=== PATIENT | male | born 1980 | race Caucasian/White ===

== ENCOUNTER 2019-03-18 18:45 | Emergency (ER) | payer SELFPAY ==
[~2019-03-18] VITALS: Ht 185.4 cm; Wt 99.8 kg
--- NOTE | 2019-03-18 19:05 | NUR ---
SEIZURE PRECAUTIONS IMPLEMENTED
--- NOTE | 2019-03-18 19:12 | NUR ---
PT BIBRA C/O WITNESSED SEIZURE. PER PT "I CANT CONTROL MY BODY AND I WAS SHAKING. -KO" PT AAOX4, VSS, BREATHING EVEN AND UNLABORED ON RA W/ NAD NOTED. PT CONNECTED TO THE MONITOR AND POX.
[2019-03-18] MEDS ORDERED: LEVETIRACETAM (500MG) 1,000 MG in IV NS 0.9% 100 ML IV ONE (19:30)
[2019-03-18] MEDS ORDERED: IV NS 0.9% 1,000 ML BAG IV ONE (19:30)
--- NOTE | 2019-03-18 19:30 | NUR ---
INSTITUTIONAL COOK AT BEDSIDE
[2019-03-18 19:54] LABS: BASOPHILS % (AUTO) 0.3 % (0.0-2.0); EOSINOPHILS % (AUTO) 2.5 % (0.0-6.0); HEMATOCRIT 44 % (39-51); HEMOGLOBIN 15.1 g/dL (13.5-17.5); LYMPHOCYTES # (AUTO) 1.1 /CMM (0.8-4.8); LYMPHOCYTES % (AUTO) 18.7 % (20.0-44.0); MEAN CORPUSCULAR HGB CONC 34 g/dl (31.0-36.0); MEAN CORPUSCULAR VOLUME 92 fL (80-96); MONOCYTES # (AUTO) 0.5 /CMM (0.1-1.30); MONOCYTES % (AUTO) 9.3 % (2.0-12.0); NEUTROPHILS % (AUTO) 69.2 % (43.0-81.0); PLATELET COUNT (AUTO) 223 /CMM (150-450); RED BLOOD CELL COUNT(AUTO) 4.76 MIL/uL (4.5-6.0); WHITE BLOOD COUNT (AUTO) 5.8 K/uL (4.3-11.0)
--- NOTE | 2019-03-18 19:57 | NUR ---
PT TAKEN TO CT
[2019-03-18 20:01] LABS: CALCIUM, SERUM 9.5 mg/dL (8.5-10.1); CARBON DIOXIDE 29 mmol/L (21-32); CHLORIDE 104 mmol/L (98-107); CREATININE 1.4 mg/dL (0.6-1.3); GLUCOSE 127 mg/dL (74-106); POTASSIUM 4.7 mmol/L (3.5-5.1); SODIUM SERUM 140 mmol/L (136-145); UREA NITROGEN, BLOOD 18 mg/dL (7-18)
[2019-03-18 20:07] LABS: ALANINE AMINOTRANSFERASE 42 U/L (12-78); ALBUMIN 3.8 g/dL (3.4-5.0); ALCOHOL, BLOOD < 3 mg/dL (0-0); ALKALINE PHOSPHATASE 82 U/L (46-116); ASPARTATE AMINOTRANSFERASE 22 U/L (15-37); BILIRUBIN,DIRECT 0.1 mg/dL (0.0-0.2); BILIRUBIN,TOTAL 0.4 mg/dL (0.2-1.0); TOTAL PROTEIN, SERUM 7.1 g/dL (6.4-8.2)
--- NOTE | 2019-03-18 20:10 | NUR ---
PT BACK FROM CT
[2019-03-18] MEDS ORDERED: GABA300C PO (20:53)
[2019-03-18] MEDS ORDERED: [UNRECOGNIZED DRUG - CODE] IJ (20:56)
--- NOTE | 2019-03-18 21:33 | NUR ---
Patient discharged to home in stable condition. Written and verbal after care instructions given. Patient verbalizes understanding of instruction.IV removed. Catheter intact and site benign. Pressure and 4x4 applied to site. No bleeding noted.
[2019-03-18 21:34] VITALS: BP 114/78
== END 2019-03-18 21:34 | disposition home or self-care (01) ==
LOC: ER 18:48
DX: R56.9 Unspecified convulsions (principal); Z88.2 Allergy status to sulfonamides; Z88.6 Allergy status to analgesic agent; Z88.5 Allergy status to narcotic agent; Z60.2 Problems related to living alone; Z79.899 Other long term (current) drug therapy
CPT/HCPCS: 36415; 70450; 71045; 80048; 80076; 80307; 82962; 85025; 85730; 93005; 96365; 99284; J1953; J7030 ×2; G0480